=== PATIENT | female | born 1990 | race Hispanic/Latino ===

== ENCOUNTER 2018-04-15 22:00 | Inpatient (IN) | payer BC, OTHER ==
[~2018-04-15 22:00] MED LIST: Bupivacaine 0.25% HCL 30 ML VIAL ONE
[2018-04-15 23:20] VITALS: BMI 28.7
[2018-04-15] MEDS ORDERED: NS w/ Oxytocin 10 units 500 ML IV SCH ×2 (23:34)
[2018-04-15] MEDS ORDERED: Carboprost 250 MCG/ML AMP IM PRN (23:34)
[2018-04-15] MEDS ORDERED: Misoprostol 200 MCG TAB PR PRN (23:34)
[2018-04-15] MEDS ORDERED: Diphenoxylate HCl/Atropine Tablet PO PRN (23:34)
[2018-04-15] MEDS ORDERED: Ibuprofen 800 MG TAB PO PRN (23:34)
[2018-04-15] MEDS ORDERED: HYDROcodone/Acetaminophen 5/325 mg Tablet PO PRN (23:34)
[2018-04-15] MEDS ORDERED: Lidocaine 1% (PF) 30 ML VIAL SC PRN (23:34)
[2018-04-15] MEDS ORDERED: Butorphanol Tartrate 1 MG/ML VIAL SLOW IVP PRN (23:34)
[2018-04-15] MEDS ORDERED: Methylergonovine 0.2 MG/ML VIAL IM PRN (23:34)
[2018-04-15] MEDS ORDERED: Ondansetron PF 4 MG/2 ML Vial IVP PRN (23:34)
[2018-04-15] MEDS ORDERED: NS / Oxytocin 40 units/1000ml 1,000 ML IV PRN (23:34)
[2018-04-16 00:12] LABS: Hemoglobin 9.9 g/dL (12.0-16.0); Mean Corpuscular Hemoglobin 21.7 pg (27.0-31.0); Platelet Count 315 thou/uL (130-400); RBC Distribution Width 26.9 % (11.5-14.5); Red Blood Cell (RBC) Count 4.54 mill/uL (4.20-5.40); White Blood Cell (WBC) Count 6.5 thou/uL (4.8-10.8)
[2018-04-16] MEDS: Misoprostol 100 MCG TAB VAG SCH ×2 (00:18→04:12)
[2018-04-16 00:47] LABS: Syphilis Antibody Nonreactive (Nonreactive); Syphilis Antibody Index 0.04 S/CO (<1.00 Non-Reactive)
[2018-04-16] MEDS: Lactated Ringer's 1,000 ML IV SCH ×2 (07:18→10:22)
[2018-04-16] MEDS ORDERED: Misoprostol 100 MCG TAB PO SCH (08:00)
[2018-04-16] MEDS ORDERED: Fentanyl 4 mcg/Bup 0.1% Cadd 100 ML ONE (09:23)
[2018-04-16] MEDS ORDERED: Lidocaine 1.5% w/Epi 1:200K 30 ML VIAL (Epid Use) ONE (10:03)
[2018-04-16] MEDS ORDERED: ePHEDrine/0.9% NaCl/PF SYRINGE 50 mg/10 ml SLOW IVP PRN (10:27)
[2018-04-16] MEDS ORDERED: Eucerin (Mineral Oil/Petrolatum,White) 30 gm Jar TOP PRN (10:27)
[2018-04-16] MEDS ORDERED: Acetaminophen 325 MG TAB PO PRN (10:27)
[2018-04-16] MEDS ORDERED: Naloxone HCl 0.4 mg/ml Vial IVP PRN ×2 (10:27)
[2018-04-16] MEDS ORDERED: diphenhydrAMINE 50 MG/ML VIAL IVP PRN (10:27)
[2018-04-16] MEDS ORDERED: Promethazine HCl 25 MG/ML VIAL IM PRN (10:27)
[2018-04-16] MEDS ORDERED: Lactated Ringer's 500 ML IV PRN (10:27)
[2018-04-16] MEDS ORDERED: Ondansetron PF 4 MG/2 ML Vial IVP PRN ×2 (10:27→15:05)
[2018-04-16] MEDS ORDERED: Fentanyl 4 mcg/Bupivacaine 0.1% Cassette 100 ML EPIDURAL SCH (10:30)
[2018-04-16] MEDS ORDERED: Communication Order-Pharmacy FS SCH (10:30)
[2018-04-16] MEDS: NS / Oxytocin 40 units/1000ml 1,000 ML IV SCH ×2 (13:10→15:44)
[2018-04-16] MEDS ORDERED: Benzocaine/Menthol 20-0.5% 60 ML CAN TOP PRN (15:05)
[2018-04-16] MEDS ORDERED: Bisacodyl 10 MG SUPP PR PRN (15:05)
[2018-04-16] MEDS ORDERED: Milk Of Magnesia 30 ML UDCUP PO PRN (15:05)
[2018-04-16] MEDS ORDERED: diphenhydrAMINE 25 MG CAP PO PRN (15:05)
[2018-04-16] MEDS ORDERED: HYDROcodone/Acetaminophen 5/325 mg Tablet PO PRN ×2 (15:05)
[2018-04-16] MEDS ORDERED: Ibuprofen 800 MG TAB PO SCH (16:00)
[2018-04-16] MEDS: Ferrous Sulfate 325 MG TAB PO SCH (17:59)
[2018-04-17] MEDS: Docusate Calcium (SURFAK) 240 MG CAP PO SCH ×2 (00:11→09:19)
[2018-04-17] MEDS: Ibuprofen 800 MG TAB PO SCH ×4 (00:25→17:18)
[2018-04-17 07:49] LABS: Hemoglobin 9.6 g/dL (12.0-16.0); Mean Corpuscular HGB CONC 29.6 g/dL (32.0-36.0); Mean Corpuscular Hemoglobin 21.2 pg (27.0-31.0); Mean Corpuscular Volume 71.5 fL (78.0-98.0); Mean Platelet Volume 5.7 fL (7.4-10.4); Platelet Count 262 thou/uL (130-400); RBC Distribution Width 27.7 % (11.5-14.5); Red Blood Cell (RBC) Count 4.51 mill/uL (4.20-5.40); White Blood Cell (WBC) Count 7.5 thou/uL (4.8-10.8)
[2018-04-17] MEDS ORDERED: Prenatal Vitamin 1 TAB PO SCH (09:00)
[2018-04-17] MEDS: Ferrous Sulfate 325 MG TAB PO SCH (09:19)
[2018-04-17 13:48] LABS: HBSAg Index 0.24 S/CO (0-0.99); Hep B Surf Ag Non-Reactive S/CO (NonReactive)
[2018-04-17 16:33] VITALS: BP 91/53; TEMP 98.2
== END 2018-04-17 17:40 | disposition home or self-care (01) | DRG 807 ==
LOC: L&D 22:25 → 3SW 04-16 15:53
PROVIDERS: ADMIT Family Medicine; ATTEND Family Medicine
PROC: 10E0XZZ Delivery of Products of Conception, External Approach (ICD-10-PCS; principal; 2018-04-16)
PROC: 10907ZC Drainage of Amniotic Fluid, Therapeutic from Products of Conception, Via Natural or Artificial Opening (ICD-10-PCS; 2018-04-16)
DX: O80 Encounter for full-term uncomplicated delivery (principal); Z37.0 Single live birth; Z3A.39 39 weeks gestation of pregnancy; Z86.19 Personal history of other infectious and parasitic diseases
CPT/HCPCS: 36415; 51702; 85027; 86780; 86850; 86900; 86901; 87340; J2001; S0020